=== PATIENT | female | born 1975 | race Caucasian/White ===

== ENCOUNTER 2018-07-28 13:46 | Emergency (ER) | payer BC, SELFPAY ==
[2018-07-28] VITALS (7 sets, daily range): BP systolic 137–175; BP diastolic 76–102; PULSE 83–98; RESP 15–38; TEMP 36.4; O2SAT 92–100; BMI 47.0
--- NOTE | 2018-07-28 14:01 | RAD_ITS ---
STUDY: X-RAY - RIGHT TIBIA AND FIBULA REASON FOR EXAM: Female, 43 years old. Fall down steps today, pain TECHNIQUE: 3 view(s) of the tibia and fibula were obtained. COMPARISON: None. FINDINGS: There is anterior dislocation of the tibia in relation to the talus, better seen on ankle x-rays. Obliquely oriented fracture of the distal fibula above the tibiotalar joint identified with approximately 7 mm of displacement. Longitudinally oriented fracture of the posterior malleolus of the distal tibia with approximately 8.5 mm of displacement. Calcaneal spur and enthesophyte noted. There is soft tissue swelling. RAD/Tibia & Fibula 2 Views IMPRESSION: 1. Distal fibular fracture. 2. Posterior malleolus (tibial) fracture. Tibiotalar joint dislocation. Electronically Signed: Chandler Pineda MD at 15:19 EST , Service support ,
--- NOTE | 2018-07-28 14:01 | RAD_ITS ---
STUDY: X-RAY - RIGHT ANKLE REASON FOR EXAM: Female, 43 years old. Fall down steps today, pain TECHNIQUE: 3 view(s) of the ankle. COMPARISON: None. FINDINGS: There is anterior dislocation of the tibia in relation to the talus. Obliquely oriented fracture of the distal fibula above the tibiotalar joint identified with approximately 7 mm of displacement. Longitudinally oriented fracture of the posterior malleolus of the distal tibia with approximately 8.5 mm of displacement. Calcaneal spur and enthesophyte noted. There is soft tissue swelling. RAD/Ankle min 3 Views IMPRESSION: 1. Anterior dislocation of the tibiotalar joint. Posterior malleolus (tibial) fracture. 2. Distal fibular fracture, Madison Gutierrez Electronically Signed: Chandler Pineda MD at 15:20 EST , Service support ,
[2018-07-28] MEDS: HYDROmorphone 1 MG/ML Syringe IV ×3 (14:15→16:15)
[2018-07-28] MEDS: Ondansetron 4 MG/2 ML Vial IV (14:15)
[2018-07-28] MEDS: proMETHazine 25 MG/ML Syringe 12.5 MG IV (14:51)
[2018-07-28] MEDS: Propofol 200 MG/20 ML Vial IV BOLUS (15:06)
--- NOTE | 2018-07-28 15:15 | RAD_ITS ---
STUDY: X-RAY - RIGHT ANKLE REASON FOR EXAM: Female, 43 years old. Status post reduction of ankle fracture TECHNIQUE: 3 view(s) of the ankle. COMPARISON: Earlier today FINDINGS: Distal fibular and posterior malleoli are fractures are again demonstrated with decreased amount of displacement as compared to the prior study. The tibiotalar joint is normally aligned. Calcaneal spur and enthesophyte noted. The visualized subtalar, talonavicular, calcaneocuboid and tarsal articulations are normal. Soft tissue swelling and splint material noted. RAD/Ankle min 3 Views IMPRESSION: 1. Radiographic alignment of the tibiotalar joint. 2. Posterior malleolus fracture. 3. Distal fibular fracture. Electronically Signed: Chandler Pineda MD at 15:56 EST , Service support ,
--- NOTE | 2018-07-28 15:27 | NURSING ---
DR CHRISTOPHER PAGEBarbara
--- NOTE | 2018-07-28 15:36 | ED.DCSUM_ITS ---
- ER Visit Summary Date of Service: 07/28/18 Chief Complaint: [Injury to right ankle after a fall] History of Present Illness: The patient is a 43 F [presents the emergency department with complaint of injury to her right ankle. Patient states that she was carrying some boxes down steps of her home when she missed the last 2 steps falling and injuring her right ankle. Patient unable to bear weight. Patient brought to ER by EMS. Patient states that she had surgery on her right ankle last year. Patient denies head or neck injury. She denies any chest pain or abdominal pain.] Physical Examination: [HEENT-PERRLA, EOMI. Cranial nerves II through XII grossly intact. TMs clear. Mucous membranes moist. No adenopathy. Cardiovascular-regular rate and rhythm without murmur or ectopy Lungs-clear to auscultation, chest wall stable without crepitus or subcu emphysema Abdomen-normoactive bowel sounds, soft, nontender, no rebound or rigidity, no peritoneal signs. Extremities-intact ?4, normal range of motion, normal pulses. Right ankle- patient has obvious deformity in the ankle is held rotated medially. Patient has soft tissue swelling. Neurovascular intact. No open areas noted. Test Results: [X-rays of the right ankle and right tib-fib obtained showed a fracture dislocation of the right ankle with fracture of the posterior malleolus and lateral malleolus.] Emergency Department Course and Treatment: [Patient was consented for procedural sedation. Patient received propofol 190 mg total in the ankle was easily reduced with some gentle traction. Patient was placed in a sugar tong and posterior splint. Patient was medicated prior to reduction with Dilaudid as well as Phenergan. Patient continues to complain of significant pain however since the reduction the pain is much improved and now has a different type of pain. Patient does not want to be admitted and would prefer to go home and follow-up with her foot and ankle specialist that she has seen in the past in [facility].] Treatment Plan: [Patient will be given crutches and a prescription for [place].] Disposition: [Discharged home in stable condition] Impression: [Mechanical fall Right ankle fracture dislocation with reduction by ER physician] This note was generated with [employer] dictation software. It may contain incorrect words, spelling, and punctuation that were not noted in review of the chart prior to signing ED Disposition - Plan for ED Patient: Chief Complaint: Lower Extremity Injury Referrals: [facility] Doctor,Out of [Primary Care Provider] -
--- NOTE | 2018-07-28 15:36 | ED.DEP ---
ED Disposition - Plan for ED Patient: Chief Complaint: Lower Extremity Injury Instructions: ED Fx Lower Ext, ED Fx Ankle Lateral Malleolus Prescriptions: Hydrocodone Bitart/Apap 5-325 [[place] 5MG-325MG] 1 tab PO Q4H PRN PRN 2 Days #20 tab PRN Reason: Pain Referrals: [facility],Out of [Primary Care Provider] - 3-5 Days
== END 2018-07-28 16:52 | disposition home or self-care (01) ==
LOC: ED 14:24
PROVIDERS: Emergency Provider Emergency Medicine
DX: S82.841A Displaced bimalleolar fracture of right lower leg, initial encounter for closed fracture (principal); W10.9XXA Fall (on) (from) unspecified stairs and steps, initial encounter; Y92.009 Unspecified place in unspecified non-institutional (private) residence as the place of occurrence of the external cause; Y93.9 Activity, unspecified; Y92.9 Unspecified place or not applicable; Y99.9 Unspecified external cause status; E11.9 Type 2 diabetes mellitus without complications; I10 Essential (primary) hypertension
CPT/HCPCS: 27810; 73590; 73610; 96374; 96375; 96376; 99285; J7030; A4216; J2405